=== PATIENT | male | born 1955 | race Caucasian/White ===

== ENCOUNTER 2020-06-28 17:40 | Inpatient (IN) | payer MEDICARE, MEDICAID ==
[~2020-06-28] VITALS: Ht 167.6 cm; Wt 88.0 kg
[2020-06-28 17:00] VITALS: BP 119/71
[2020-06-28 17:55] VITALS: BP 139/75
--- NOTE | 2020-06-28 17:55 | NUR ---
PT ARRIVED VIA WC A DIRECT ADMIT. A&O X2, RE-ORIENTATION TO CURRENT MONTH NEEDED, PT EASILY RE-ORIENTED. NIECE PROVIDED MED LIST, PT UNABLE TO RECALL MEDICAL HX OR MEDICATIONS. PER NIECE HE USED TO LIVE [place] USE TO CARE FOR HIM, AFTER SHE SHE BECAME HIS POA. PEDAL PULSE TO THE RT FOOT WEAKER COMPARED TO THE LT FOOT. DOPPLER USED, PULSES HEARD IN BILATERAL FEET. #20 IV GAUGE INITIATED TO RFA CURRENTLY SALINE LOCK. DIRECT ADMIT ORDERS SENT TO PHARMACY. CHRONIC BIG TOE WOUND TO RT BIG TOE. SEE CHART FOR PHOTO. DR KIRK CALLED FOR CONSULT, DR BOWEN CONSULT BOOKED, ORDER FOR WOUND CARE REC. ASSESSMENT COMPLETED. DISCUSSED POC. CALL LIGHT IN REACH. CONTINUE TO MONITOR.
--- NOTE | 2020-06-28 18:35 | NUR ---
PLACED CONSULTATION IN IPAD FOR DR. BOWEN CONSULT.
--- NOTE | 2020-06-28 18:39 | NUR ---
CALLED DR. MIRELES REGARDING CONSULTATION OF THIS PT. STATED HE WOULD SEE HIM IN THE MORNING TOMORROW.
[2020-06-28 18:55] LABS: HEMATOCRIT 39.7 % (39.0-50.0); HEMOGLOBIN 12.5 g/dl (14.0-18.0); IMMATURE GRANULOCYTES 0.4 % (0.0-5.0); MEAN CELL VOLUME 89.6 fL CALC (80.0-100.0); MEAN CORPUSCULAR HGB 28.2 pG CALC (26.0-32.0); MEAN CORPUSCULAR HGB CONC 31.5 g/dL CAL (32.0-36.0); NEUT# 6.71 thou/uL (1.82-7.42); RED BLOOD COUNT 4.43 mill/uL (4.70-6.10); RED CELL DISTRI WIDTH 13.7 % (11.5-15.5)
[2020-06-28 18:56] LABS: URINE BILIRUBIN - DIPSTICK NEGATIVE (NEGATIVE); URINE BLOOD DIPSTICK NEGATIVE (NEGATIVE); URINE CLARITY CLEAR; URINE COLOR YELLOW; URINE GLUCOSE - DIPSTICK >=1000 mg/dL (NEGATIVE); URINE KETONE NEGATIVE (NEGATIVE); URINE LEUK ESTERASE NEGATIVE (Negative); URINE NITRITE - DIPSTICK NEGATIVE (Negative); URINE PH 5.5 (4.5-8.0); URINE PROTEIN - DIPSTICK NEGATIVE (NEG-TRACE); URINE SPECIFIC GRAVITY 1.025; URINE UROBILINOGEN - DIPSTICK 0.2 E.U./dL (0.2)
[2020-06-28 19:31] LABS: ALBUMIN 3.9 g/dL (3.2-5.0); ALKALINE PHOSPHATASE 153 u/l (38-126); ANION GAP 12 (6-22 (CALC)); BILIRUBIN, TOTAL 1.2 mg/dL (0.0-1.4); BUN 21 mg/dL (8-23); BUN/CREATININE RATIO 32 (12-20 (CALC)); C-REACTIVE PROTEIN 4.1 mg/dL (0-0.9); CARBON DIOXIDE 28 mmol/l (22-30); CHLORIDE 99 mmol/l (95-108); CREATININE 0.7 mg/dL (0.7-1.3); GFR > 60 ML/MIN (>=60 (CALC)); GFR FOR AFR.AMER. > 60 ML/MIN (>=60 (CALC)); POTASSIUM 4.4 mmol/l (3.5-5.1); SGOT/AST 27 u/l (19-48); SODIUM 134 mmol/l (137-146); TOTAL PROTEIN 8.1 g/dL (6.3-8.2)
[2020-06-28] MEDS ORDERED: ISOSORB MONO30 MG PO (19:42)
[2020-06-28] MEDS ORDERED: LASIX20 MG PO (19:43)
--- NOTE | 2020-06-28 20:04 | NUR ---
RECIEVED REPORT FROM TAISHA ROBERTS. PT ASSESSMENT AND VITALS COMPLETE. PT RESTING IN IN SEMI FOLWERS POSITION WATCHING TV UPON ENTERING ROOM.RESPIRATIONS ARE EVEN AND UNLABORED WITH NO SIGNS OF DISTRESS NOTED. IV ROCEPHIN RUNNING WITH EASE PER ORDER, SITE APPEARS HEALTHY AND PATENT. ULCERATED RIGHT GREAT TOE HAS NO TOE NAIL. FAINT PEDAL PULSE IN RIGHT FOOT. LEFT FOOT PEDAL PULSE WITHIN NORMAL LIMITS. TELEMENTRY IN PLACE. NO SIGNS OF ANY PAIN OR DISCOMFORTS AT THIS TIME. ALL SAFETY PRECAUTIONS ARE IN PLACE WITH CALL LIGHT IN REACH. WILL CONTINUE TO MONITOR.
[2020-06-28] MEDS ORDERED: LISINOPRIL20 M1 PO (20:26)
[2020-06-28] MEDS ORDERED: LIPITOR40 M1 PO (20:27)
[2020-06-28] MEDS ORDERED: ASPIRIN 81 LOW81 MG (20:28)
[2020-06-28] MEDS ORDERED: LORATADINE10 M3 (20:29)
[2020-06-28] MEDS ORDERED: LEVEMIR FL100 UNIT/M SC (20:31)
[2020-06-28] MEDS ORDERED: HUMALOG100 UNIT/M SC (20:31)
--- NOTE | 2020-06-28 21:05 | NUR ---
RECEIVED PHONE CALL FROM NIECE VOICING CONCERNS REGARDING PT'S DAUGHTER WANTING TO DISRUPT PTS CARE. THEY ARE ASKING FOR CALL FROM CASE MANAGEMENT TO DISCUSS POC FOR PT.
--- NOTE | 2020-06-28 21:15 | NUR ---
RECIEVED REPORT FROM TAISHA ROBERTS. PT ASSESSMENT AND VITALS COMPLETE. PT RESTING IN IN SEMI FOLWERS POSITION WATCHING TV UPON ENTERING ROOM.RESPIRATIONS ARE EVEN AND UNLABORED WITH NO SIGNS OF DISTRESS NOTED. IV ROCEPHIN RUNNING WITH EASE PER ORDER, SITE APPEARS HEALTHY AND PATENT. ULCERATED RIGHT GREAT TOE HAS NO TOE NAIL. FAINT PEDAL PULSE IN RIGHT FOOT. LEFT FOOT WITHIN NORMAL LIMITS. TELEMENTRY IN PLACE. NO SIGNS OF ANY PAIN OR DISCOMFORTS AT THIS TIME. ALL SAFETY PRECAUTIONS ARE IN PLACE WITH CALL LIGHT IN REACH. WILL CONTINUE TO MONITOR.
[2020-06-29] VITALS: BP 137/75
--- NOTE | 2020-06-29 02:07 | NUR ---
PT SLEEPING IN BED WITH NO DISTRESSNOTED; CALL TURNER WITHIN REACH. WILL CONTINUE TO MONITOR.
[2020-06-29 04:00] VITALS: BP 127/74
--- NOTE | 2020-06-29 05:02 | NUR ---
PT SLEEPING QUIETLY. NO DISCOMFORT OBSERVED WILL CONTINUE TO MONITOR.
[2020-06-29 05:43] LABS: ALBUMIN 3.3 g/dL (3.2-5.0); ALKALINE PHOSPHATASE 141 u/l (38-126); ANION GAP 12 (6-22 (CALC)); BUN 16 mg/dL (8-23); BUN/CREATININE RATIO 24 (12-20 (CALC)); CARBON DIOXIDE 28 mmol/l (22-30); CHLORIDE 101 mmol/l (95-108); CREATININE 0.7 mg/dL (0.7-1.3); GFR > 60 ML/MIN (>=60 (CALC)); GFR FOR AFR.AMER. > 60 ML/MIN (>=60 (CALC)); POTASSIUM 4.5 mmol/l (3.5-5.1); SGOT/AST 28 u/l (19-48); SODIUM 137 mmol/l (137-146); TOTAL PROTEIN 6.9 g/dL (6.3-8.2)
[2020-06-29 05:46] LABS: BILIRUBIN, TOTAL 0.7 mg/dL (0.0-1.4)
[2020-06-29 07:49] VITALS: BP 135/78
--- NOTE | 2020-06-29 07:57 | NUR ---
SHIFT CHANGE REPORT, PT AWAKE ALERT AND ORIENTED AMBULATING IN ROOM, DENIES DISCOMFORT. DR KIRK HERE ROUNDING AT THIS TIME, GAVE VERBAL DRESSING ORDERS AND STATED HE WILL DISCUSS WITH DR MARIA, WILL CONTINUE TO MONITOR.
--- NOTE | 2020-06-29 08:10 | NUR ---
PT note Patient is screened for PT intervention and would benefit if medical agrees to PT consult
--- NOTE | 2020-06-29 08:30 | NUR ---
DR KIRK CONSULTED, GAVE DRESSING ORDERS.
[2020-06-29 10:30] VITALS: BP 132/82
--- NOTE | 2020-06-29 11:05 | NUR ---
CONSULT PLACED AT THIS TIME.
--- NOTE | 2020-06-29 14:26 | NUR ---
S: DIANA CAO is a 64 M who presents with non healing right foot wound (rule out osteomyelitis). He has a history of diabetes, hyperlipidemia, hypertension, seasonal allergies,congestive heart failure, and peripheral arterial disease. All medications in patient's chart were reviewed. O: VS: BP 132/82 mmHg, P 90 bpm, RR 18 breaths per minute,T 97 F W 88 kg, HT 167.6 cm, Scr= 0.7 mg/dL,CrCl= 113.8 ml/min A: No blood culture pending at this time. P: Patient is on ceftriaxone 2g IV q24h. Vancomycin ordered for pharmacy to dose. Loading dose of vancomycin 1750 mg IV x1 given 06/28@1999. Start Vancomycin 1250 mg IV Q12H. Vancomycin trough is drawn before the 4th dose on 06/30/20 at 2030 Vancomycin goal trough is between 15-20 mcg/ml. Pharmacy will follow and or advise on antibiotics use as needed.
[2020-06-29 15:05] VITALS: BP 124/78
[2020-06-29 19:00] VITALS: BP 118/64
--- NOTE | 2020-06-29 20:02 | NUR ---
RECIEVED REPORT FROM TAISHA BAUMANN. PT ASSESSMENT AND VITALS COMPLETE. PT RESTING IN IN SEMI FOLWERS POSITION WATCHING TV UPON ENTERING ROOM.RESPIRATIONS ARE EVEN AND UNLABORED WITH NO SIGNS OF DISTRESS NOTED.IV SITE APPEARS HEALTHY AND PATENT. ULCERATED RIGHT GREAT TOE HAS NO TOE NAIL. FAINT PEDAL PULSE IN RIGHT FOOT; SALINE LOCKED AT THIS TIME. LEFT FOOT PEDAL PULSE WITHIN NORMAL LIMITS. TELEMENTRY IN PLACE. NO SIGNS OF ANY PAIN OR DISCOMFORTS AT THIS TIME. ALL SAFETY PRECAUTIONS ARE IN PLACE WITH CALL LIGHT IN REACH. WILL CONTINUE TO MONITOR.
[2020-06-30] VITALS (7 sets, daily range): BP systolic 101–128; BP diastolic 48–79
--- NOTE | 2020-06-30 00:02 | NUR ---
PT SLEEPING QUIETLY. NO DISCOMFORT OBSERVED WILL CONTINUE TO MONITOR.
--- NOTE | 2020-06-30 04:57 | NUR ---
PT REMAINS BEFORE, RESTING QUIETLY WITH OUT ANY CO OF PAIN OR DISTRESS. CALL TURNER WITHIN REACH. WILL CONTINUE TO OBSERVE.
[2020-06-30 05:28] LABS: HEMATOCRIT 38.7 % (39.0-50.0); HEMOGLOBIN 11.9 g/dl (14.0-18.0); IMMATURE GRANULOCYTES 0.3 % (0.0-5.0); MEAN CELL VOLUME 90.8 fL CALC (80.0-100.0); MEAN CORPUSCULAR HGB 27.9 pG CALC (26.0-32.0); MEAN CORPUSCULAR HGB CONC 30.7 g/dL CAL (32.0-36.0); NEUT# 7.08 thou/uL (1.82-7.42); RED BLOOD COUNT 4.26 mill/uL (4.70-6.10); RED CELL DISTRI WIDTH 13.8 % (11.5-15.5)
[2020-06-30 05:33] LABS: ALBUMIN 3.1 g/dL (3.2-5.0); ALKALINE PHOSPHATASE 130 u/l (38-126); ANION GAP 11 (6-22 (CALC)); BILIRUBIN, TOTAL 0.6 mg/dL (0.0-1.4); BUN 15 mg/dL (8-23); BUN/CREATININE RATIO 25 (12-20 (CALC)); CARBON DIOXIDE 30 mmol/l (22-30); CHLORIDE 102 mmol/l (95-108); CREATININE 0.6 mg/dL (0.7-1.3); GFR > 60 ML/MIN (>=60 (CALC)); GFR FOR AFR.AMER. > 60 ML/MIN (>=60 (CALC)); POTASSIUM 4.4 mmol/l (3.5-5.1); SGOT/AST 26 u/l (19-48); SODIUM 139 mmol/l (137-146); TOTAL PROTEIN 6.5 g/dL (6.3-8.2)
--- NOTE | 2020-06-30 07:23 | NUR ---
SHIFT CHANGE REPORT, PT AWAKE ALERT AND ORIENTED AMBULATING IN ROOM, DENIES DISCOMFORT OF ANY KIND, TELE MONITOR IN PLACE, CALL TURNER IN REACH.
--- NOTE | 2020-06-30 10:10 | NUR ---
RADIO ENGINEERING TEACHER (ANNE) REPORTED 10 BEATS V-TACH @ 0934, ON ASSESSMENT PT RELAXED IN BED, DENIES CHEST PAIN/DISCOMFORT, VITAL SIGNS MEASURED = BP 129/77, HR 101, WATER TREATMENT PLANT OPERATOR NOTIFIED AND STATED WILL ORDER MG LEVEL.
--- NOTE | 2020-06-30 12:06 | NUR ---
SITTING ON SIDE OF BED HAVING MEAL, NO COMPLAINTS
--- NOTE | 2020-06-30 20:00 | NUR ---
PATIENT ALERT, VERBAL WITH INT CONFUSION, ABLE TO MAKE NEEDS KNOWN. ABLE TO TOLERATE MEDS WELL WHOLE. FSBS ORDERED WITH SSI PRN--NO S/S OF GLYCEMIC REACTION NOTED. CONT ON IV ABT THERAPY RELATED TO RIGHT GREAT TOE WOUND--DRSG C/D/I. PICC LINE PATENT TO KARINA--FLUSHES WELL--SITE WITHOUT ANY S/S OF INFECTION NOTED. VAN TROUGH DRAWN PRIOR TO TONIGHT'S DOSE--@ 12--VANC INFUSING WELL AT THIS TIME--NO S/E NOTED THUS FAR--AFEBRILE. TELEMETRY IN PLACE WITH SR @ 99 WITH PVCs. CONT OF BOWEL AND BLADDER--ABLE TO AMBULATE TO AND FROM INDEPENDENTLY--UP IN ROOM AD FERNANDO. DENIES ANY PAIN OR DISCOMFORT. PENDING POSSIBLE DISCHARGE HOME TOMORROW WITH HOME HEALTH TO CONTINUE IV ABT THERAPY. WILL CONT TO MONITOR FOR ANY FURTHER CHANGES.
[2020-07-01] VITALS (7 sets, daily range): BP systolic 107–119; BP diastolic 62–78
--- NOTE | 2020-07-01 | NUR ---
PATIENT RESTING SOUNDLY IN BED WITH EYES CLOSED AT THIS TIME. PIV SITE PATENT--FLUSHES WELL--SITE UNREMARKABLE. NO APPARENT DISTRESS NOTED. TELEMETRY IN PLACE WITH SR @ 95--PVCS WITH 1ST DEGRE AV BLOCK NOTED WELL. DRSG REMAINS C/D/I RIGHT RIGHT GREAT TOE. NO S/S OF GLYCEMIC REACTION NOTED. WILL CONT TO MONITOR FOR ANY FURTHER CHANGES.
[2020-07-01 03:42] LABS: HEMOGLOBIN 10.6 g/dl (14.0-18.0); MEAN CELL VOLUME 91.2 fL CALC (80.0-100.0); MEAN CORPUSCULAR HGB 28.4 pG CALC (26.0-32.0); MEAN CORPUSCULAR HGB CONC 31.2 g/dL CAL (32.0-36.0); RED BLOOD COUNT 3.73 mill/uL (4.70-6.10)
[2020-07-01 03:56] LABS: ANION GAP 9 (6-22 (CALC)); BUN 12 mg/dL (8-23); BUN/CREATININE RATIO 22 (12-20 (CALC)); CARBON DIOXIDE 28 mmol/l (22-30); CHLORIDE 107 mmol/l (95-108); CREATININE 0.5 mg/dL (0.7-1.3); GFR > 60 ML/MIN (>=60 (CALC)); GFR FOR AFR.AMER. > 60 ML/MIN (>=60 (CALC)); MAGNESIUM 1.7 mg/dL (1.6-2.3); POTASSIUM 3.9 mmol/l (3.5-5.1); SODIUM 140 mmol/l (137-146)
--- NOTE | 2020-07-01 04:00 | NUR ---
PATIENT RESTING SOUNDLY IN BED WITH EYES CLOSED AT THIS TIME. LABS DRAWN FROM PICC LINE THIS AM--PENDING AT THIS TIME. NO S/S OF GLYCEMIC REACTION NOTED. DENIES PAIN OR DISCOMFORT. TELEMETRY IN PLACE--SINUS RHYTHM @ 89. WILL CONT TO MONITOR FOR ANY FURTHER CHANGES.
--- NOTE | 2020-07-01 07:20 | NUR ---
ASSESSMENT IS COMPLETEDA; IV SITE IS FREE FROM REDNESS OR EDEMA. HR IS REG,PULSES ARE STRONG X4, ABD IS SOFT WITH ACTIVE BS. BREATH SOUNDS ARE CLEAR BILATERALLY, NO C/O SOB, DRESSING ON R FOOT IS CDI. CONTINUE TO OSBERVE AND MONITOR.
--- NOTE | 2020-07-01 09:38 | NUR ---
S: DIANA CAO is a 64 M who presents with right toe ulcer, chronic ulcer of right great toe, subacute osteomyelitis, right ankle and foot. He has a history of CAD, IDDM, CHF, seasonal allergies, hyperlipidemia, peripheral arterial disease, HTN. All medications in patient's chart were reviewed. O: VS: BP 118/78 mmHG, P 93 bpm, RR 17 breaths/min, T 97.5 W 88kg, HT 66in, Scr= 0.5mg/dL ,CrCl= 132.7 ml/min A: Blood culture is not ordered. P: Patient is on Vancomycin IV. trough=12 on 06/30/20 Vancomycin ordered for pharmacy to dose. Continue Vancomycin 1250 IV Q12H. Vancomycin trough is drawn before the 4th dose on 07/02/20 0830. Vancomycin goal trough is between 10-20 mcg/ml. Pharmacy will follow and or advise on antibiotics use as needed.
--- NOTE | 2020-07-01 12:15 | NUR ---
PT IS RELAXING ON THE SIDE OF THE BED, IV SITE IS FREE FROM REDNESS OR EDEMA.
--- NOTE | 2020-07-01 15:29 | NUR ---
REMOVED DRESSING ON R BIG TOE. THE NAIL IS OFF. HAS BETADINE , WITH DRY SKIN. REPLACED WITH BETADINE 2X2 AND CLEANED WITH MORE BETADINE. COVERED WITH DRY DRESSING SECURED WITH SMALL KATELYN. AND TAPE. USING CLEAN TECHNIQUE PT TOLERATED WELL.
--- NOTE | 2020-07-01 16:00 | NUR ---
PT IS RELAXING AND AMBULATING IN THE HERNA[place]Z WITH NO DISTRESS NOTED. IV SITE IS FREE FROM REDNESS OR EDEMA.
--- NOTE | 2020-07-01 20:00 | NUR ---
PATIENT ALERT, VERBAL WITH INT CONFUSION, ABLE TO MAKE NEEDS KNOWN. ABLE TO TOLERATE MEDS WELL WHOLE. CONT ON IV ABT THERAPY RELATED TO RIGHT HALLUX WOUND WITH NO SIDE EFFECTS NOTED--AFEBRILE. DRSG PATENT TO RIGHT HALLUX WOUND--C/D/I. PATIENT RECEIVING VANC--TROUGH DUE IN THE AM @ 0830. PICC LINE PATENT TO KARINA--FLUSHES WELL--SITE WITHOUT ANY S/S OF INFECTION NOTED--DRSG C/D/I. CONT OF BOWEL AND BLADDER--ABLE TO AMBULATE TO AND FROM IN ROOM WITH MINIMAL ASSIST. DENIES PAIN OR DISCOMFORT. PT/OT IN PLACE--COMPLAINT WITH PARTICIPATING WITH THERAPY. FSBS ORDERED WITH SSI PRN--NO S/S OF GLYCEMIC REACTION NOTED. TELEMETRY IN PLACE WITH SINUS RHYTHM WITH PVCs @ 97. WILL CONT TO MONITOR FOR ANY FURTHER CHANGES.
[2020-07-02] VITALS (7 sets, daily range): BP systolic 95–144; BP diastolic 60–82
--- NOTE | 2020-07-02 | NUR ---
PATIENT RESTING SOUNDLY IN BED WITH EYES CLOSED AT THIS TIME. RECEIVED IV VANCOMYCIN ORDERED--TOLERATED INFUSION WELL. PICC LINE PATENT TO RUE--FLUSHES WELL--SITE WITHOUT ANY S/S OF INFECTION NOTED.TELEMETRY IN PLACE--SINUS RHYTHM W/PVCs @ 88. NO APPARENT DISTRESS NOTED. WILL CONT TO MONITOR FOR ANY FURTHER CHANGES.
--- NOTE | 2020-07-02 04:00 | NUR ---
PATIENT AWAKE AND SEATED ON SIDE OF BED WATCHING TV AT THIS TIME--NO APPARENT DISTRESS NOTED. LABS FOR THIS AM DRAWN FROM PICC LINE AND SENT TO LAB FOR TESTING. PICC LINE PATENT TO KARINA--FLUSHES WELL--SITE WITHOUT ANY S/S OF INFECTION NOTED. TELEMETRY IN PLACE WITH SR @ 97. WILL CONT TO MONITOR FOR ANY FURTHER CHANGES.
[2020-07-02 05:04] LABS: HEMATOCRIT 36.9 % (39.0-50.0); HEMOGLOBIN 11.6 g/dl (14.0-18.0); MEAN CELL VOLUME 92.7 fL CALC (80.0-100.0); MEAN CORPUSCULAR HGB 29.1 pG CALC (26.0-32.0); MEAN CORPUSCULAR HGB CONC 31.4 g/dL CAL (32.0-36.0); RED BLOOD COUNT 3.98 mill/uL (4.70-6.10)
[2020-07-02 05:34] LABS: ANION GAP 8 (6-22 (CALC)); BUN 14 mg/dL (8-23); BUN/CREATININE RATIO 21 (12-20 (CALC)); CARBON DIOXIDE 28 mmol/l (22-30); CHLORIDE 108 mmol/l (95-108); CREATININE 0.7 mg/dL (0.7-1.3); GFR > 60 ML/MIN (>=60 (CALC)); GFR FOR AFR.AMER. > 60 ML/MIN (>=60 (CALC)); POTASSIUM 4.3 mmol/l (3.5-5.1); SODIUM 140 mmol/l (137-146)
--- NOTE | 2020-07-02 07:50 | NUR ---
ASSESSMENT IS COMPLETED: IV SITE IS FREE FROM REDNESS OR EDEMA HR IS REG,PULSES ARE STRONG X4, ABD IS SOFT WITH ACTIVE BS. BREATH SOUNDS ARE CLEAR BILATERALLY. TELE MONITOR IN PLACE. R TOE MINER DRESSING IS CDI CONTINUE TO OBSERVE AND MONITOR.
--- NOTE | 2020-07-02 12:00 | NUR ---
PT HAS BEEN AMBULATING IN THE HER[place]Z WITH NO DISTRESS NOTED. IV SITE IS FREE FROM REDNESS OR EDEMA.
--- NOTE | 2020-07-02 12:55 | NUR ---
S: DIANA CAO is a 64 M who presents with ulcer on right toe, chronic ulcer of right toe, and subacute osteomyelitis of right ankle and foot. He has a history of CAD, IDDM, CHF, seasonal allergies, hyperlipidemia, peripheral arterial disease, HTN. All medications in patient's chart were reviewed. O: Trough = 12 mmcg/ml VS: BP 110/71 mmHg, P 93 bpm, RR 19 breats/min, T 97.3 F W 88Kg, HT 66in, Scr= 0.7 mg/dL, CrCl= 113.76 ml/min P: Patient is on Vancomycin IV. Vancomycin trough is 12 ug/mL Vancomycin ordered for pharmacy to dose. Continue Vancomycin 1250 mg IV Q12H. Vancomycin trough is to be drawn on 07/04/20 @ 0830. Vancomycin goal trough is between 10-20 mcg/ml. Pharmacy will follow and or advise on antibiotics use as needed.
--- NOTE | 2020-07-02 14:18 | NUR ---
GAIT TRAINING USING QUADCANE X 150 FEET, SUPERVISION WITH MINIMAL VERBAL CUES ON PROPER USE, GAIT PATTERN, AND SEQUENCING USING THE ASSISTIVE DEVICE. AMPAC = 15
--- NOTE | 2020-07-02 16:00 | NUR ---
PT HAS BEEN AMBULATING IN THE HER[place] WITH NO DISTRESS NOTED. PT AND OT CAME AND SEEN THE PT FOR EVALUATION.
--- NOTE | 2020-07-03 01:10 | NUR ---
Patient up beginning of shift, walking throughout hallway. Resp. even and unlabored. No SOB noted. On IV ABT for osteomyelitis, no adverse reaction noted. Afebrile. IV site in MARGUERITE intact, flushing well. Telemetry reading sinus rhythm. Will continue to monitor. Fluids encouraged. Safety measures in place with call light in reach.
[2020-07-03 04:25] VITALS: BP 125/75
[2020-07-03 07:30] VITALS: BP 146/83
--- NOTE | 2020-07-03 07:30 | NUR ---
ASSESSMENT IS COMPLETED: IV SITE IS FREE FROM REDNESS OR EDEMA. HR IS REG,PULSES ARE STRONG X4, ABD IS SOFT WITH ACTIVE BS. BREATH SOUNDS ARE CLEAR,BILATERALLY, DRESSING ON R FOOT IS CDI. WILL ENCOURAGE PT TO SHOWER AFTER ABT IS COMPLETED.TELE MONITOR IN PLACE. CONTINEU TO OSBERVE AND MONITOR.
--- NOTE | 2020-07-03 10:00 | NUR ---
DR MONTEZ IN TO VISIT WITH PT.
[2020-07-03 10:30] VITALS: BP 113/79
--- NOTE | 2020-07-03 11:45 | NUR ---
1145-PT LYING IN BED. NO S/S OF DISTRESS. BED LOW AND LOCKED. CALL LIGHT AND PHONE WITHIN REACH. PT STABLE. WILL CONTINUE TO MONITOR.
--- NOTE | 2020-07-03 12:00 | NUR ---
PT IS AMBULATING IN THE HERNANDEZ AND ROOM. CONTINUE TO OBSERVE AND MONITOR.,
--- NOTE | 2020-07-03 13:59 | NUR ---
PT TOOK A SHOWER. REMOVED DRESSING ON R BIG TOE. REMAINS PINK AND DRY. REPLACED WITH 2X2 AND BETADINE., WITH DRY GAUZE AND WRAPPED WITH KATELYN. USING CLEAN TECHNIQUE.
--- NOTE | 2020-07-03 14:15 | NUR ---
FLUSHED THE PICC LINE. PURPLE LINE FLUSHED WITHOUT DIFFICULTY. RED LINE A LITTLE DIFFICULT. AND PUT HEPARIN IN THE LINE TO GET IT TO FLUSH PROPERLY.
[2020-07-03 15:00] VITALS: BP 124/80
--- NOTE | 2020-07-03 16:00 | NUR ---
PT IS RELAXING ON THE SIDE OF THE BED, NO DISTRESS NTOED. IV SITE IS FREE FROM REDNESS OR EDEMA. CONTINEU TO OSBERVE AND MONITOR.
--- NOTE | 2020-07-03 18:50 | NUR ---
1850-PT ALERT AND ORIENTED. NO S/S OF DISTRESS. DENIES PAIN. PT IS STABLE. BED LOW AND LOCKED. CALL LIGHT AND PHONE WITHIN REACH. WILL CONTINUE TO MONITOR.
[2020-07-03 19:00] VITALS: BP 131/79
[2020-07-04] VITALS: BP 125/73
--- NOTE | 2020-07-04 03:45 | NUR ---
0345-PT LYING IN BED ASLEEP. NO S/S OF DISTRESS. BED LOW AND LOCKED. CALL LIGHT AND PHONE WITHIN REACH. PT STABLE. WILL CONTINUE TO MONITOR.
[2020-07-04 04:00] VITALS: BP 114/74
[2020-07-04 07:35] VITALS: BP 116/65
--- NOTE | 2020-07-04 07:35 | NUR ---
ASSESSMENT IS COMPLTED: IV SITE IS FREE FROM REDNESS OR EDEMA. HR IS REG,PULSES ARE STRONG X4, ABD IS SOFT WITH ACTIVE BS, BREATH SOUNDS ARE CLEAR,BILATERALLY, TELE MONITOR IN PLACE. CONTINUE TO OSBERVE AND MONITOR.
--- NOTE | 2020-07-04 08:31 | NUR ---
ATTEMPT MADE TO COLLECT VANCOTROUGH SAMPLE FROM PICC LINE, UNSUCCESSFULL. FLUSHED LINE WITH HEPARIN. WILL REATTEMPT TO PULL BACK BLOOD. PURPLE LUMEN FLUSHES WITH NO DRAW BACK, RED LUMEN UNABLE TO FLUSH OR DRAW BACK. VANCOTROUGH COLLECTED.
[2020-07-04 10:30] VITALS: BP 118/72
--- NOTE | 2020-07-04 12:00 | NUR ---
CONTINUE TO ATTEMPT TO FLUSH THE RED SIDE OF THE PICC LINE. UNSUCCESSFUL. INQUIRED ABOUT MEDICATION TO OPENUP . WAITING ON DR NELSON.
--- NOTE | 2020-07-04 14:26 | NUR ---
PT IS RECEIVING VANCOMYCIN 1250MG IV Q12H FOR NON HEALING R FOOT WOUND. PER DR BOWEN, GOAL TROUGH IS 10-20 MCG/ML. TROUGH THIS AM @ 0830 WAS 15 MCG/ML, SO CONTINUE CURRENT DOSE. TROUGH HAS BEEN WITHIN GOAL RANGE X3. WILL CHECK VANCO LEVEL ON 07/06 @ 0830. NO LABS HAVE BEEN ORDERED SINCE 07/02, WILL ASSESS KIDNEY FUNCTION WITH NEXT LAB DRAW. PHARMACY WILL CTONINUE TO FOLLOW AND ADVISE NEEDED.
--- NOTE | 2020-07-04 14:30 | NUR ---
CATHFLO ADMINISTERED BY HILDA SUMNER.
[2020-07-04 15:00] VITALS: BP 124/72
--- NOTE | 2020-07-04 15:00 | NUR ---
1430- cath rich administdred in red lumen per md orders and protocol. 1500- withdrew 5cc of blood aspirate from red lumen. both lumens flushed with ease and blood aspirate from both lumens noted.
--- NOTE | 2020-07-04 16:00 | NUR ---
REFLUSHED THE PICC LINE SITES VERY SUCCESSFUL. NO DISTRESS NOTED. DRESSING ON R BIG TOE WAS TAKEN OFF FOR A SHOWER. PICTURE COMPLTED: REPLACED WITH BETADINE 2X2 AND COVERED WITH 2X2, SECURED WITH KATELYN WRAP. AND TAPE. PT TOLERATED WELL. TOP OF BIG TOE ON R FOOT IS HARD ( WITH BLACK SURFACE) AND SOFT (WITH WHITE UNDER NEATH THE BLACK). CONTINUE TO OSBERVE AND MONITOR. .
[2020-07-04 19:00] VITALS: BP 112/64
--- NOTE | 2020-07-04 20:56 | NUR ---
pt medicated as orders provide and snack provided. No s/o distress, denies pain at this time. Iv antibiotic therapy administered at this time. Call light w/in reach and pt encouraged to call as needs arise.
--- NOTE | 2020-07-04 23:00 | NUR ---
PT IV ANTIBIOTIC THERAPY COMPLETE AT THIS TIME. PICC LINE FLUSHED X2 LUMENS AND HEP LOCKED. PT DENIES ANY OTHER NEEDS. TV AND LIGHTS ARE ON WITH CALL LIGHT W/IN REACH.
[2020-07-05] VITALS: BP 110/69
--- NOTE | 2020-07-05 03:16 | NUR ---
PT SITTING UPRIGHT IN BED AWAKE LOOKING AT TV. WHEN ASKED, DENIED ANY NEEDS. CALL LIGHT AT SIDE.
[2020-07-05 04:00] VITALS: BP 128/83
--- NOTE | 2020-07-05 04:18 | NUR ---
BLOOD DRAWN FOR LAB FROM PICC LINE. FLUSHES PATENT AND HEP LOCKED AT THIS TIME X2 LUMENS.
[2020-07-05 04:32] LABS: HEMATOCRIT 37.6 % (39.0-50.0); HEMOGLOBIN 11.7 g/dl (14.0-18.0); IMMATURE GRANULOCYTES 0.3 % (0.0-5.0); MEAN CELL VOLUME 92.8 fL CALC (80.0-100.0); MEAN CORPUSCULAR HGB 28.9 pG CALC (26.0-32.0); MEAN CORPUSCULAR HGB CONC 31.1 g/dL CAL (32.0-36.0); NEUT# 5.73 thou/uL (1.82-7.42); RED BLOOD COUNT 4.05 mill/uL (4.70-6.10); RED CELL DISTRI WIDTH 14.6 % (11.5-15.5)
[2020-07-05 04:49] LABS: ALBUMIN 3.4 g/dL (3.2-5.0); ALKALINE PHOSPHATASE 158 u/l (38-126); ANION GAP 11 (6-22 (CALC)); BILIRUBIN, TOTAL 0.6 mg/dL (0.0-1.4); BUN 15 mg/dL (8-23); BUN/CREATININE RATIO 24 (12-20 (CALC)); CARBON DIOXIDE 27 mmol/l (22-30); CHLORIDE 106 mmol/l (95-108); CREATININE 0.6 mg/dL (0.7-1.3); GFR > 60 ML/MIN (>=60 (CALC)); GFR FOR AFR.AMER. > 60 ML/MIN (>=60 (CALC)); POTASSIUM 4.4 mmol/l (3.5-5.1); SGOT/AST 28 u/l (19-48); SODIUM 140 mmol/l (137-146)
[2020-07-05 07:38] VITALS: BP 137/73
--- NOTE | 2020-07-05 07:54 | NUR ---
REPORT RECEIVED FROM TAISHA COBIAN. PT SITTING UP ON EDGE OF BED; ALERT AND ORIENTED. DENIES PAIN. RESPIRATIONS EVEN AND UNLABORED ON ROOM AIR. LUNGS DIMINISHED; 1+ ANKLE EDEMA. PT LISTENING TO MUSIC AND PLEASANT. DRESSING TO MARGUERITE PICC LINE IS CDI. PLAN OF CARE REVIEWED. PT ENCOURAGED TO VERBALIZE CONCERNS. STATES UNDERSTNANDING. SAFETY MEASURES IN PLACE. CALL LIGHT WITHIN REACH.
--- NOTE | 2020-07-05 10:12 | NUR ---
PT AMBULATING INDEPENDENTLY IN HALLWAYS; PLEASANT AND TALKATIVE. VANCO INFUSING AT THIS TIME INTO MARGUERITE PICC LINE; DRESSING CDI.
--- NOTE | 2020-07-05 10:55 | NUR ---
DRESSING TO RIGHT GREAT TOE REPLACED; DRESSED WITH BETADINE AND DRY GAUZE. DRESSING TO MARGUERITE PICC LINE ALSO CHANGED AT THIS TIME.
[2020-07-05 11:20] VITALS: BP 115/66
--- NOTE | 2020-07-05 11:45 | NUR ---
PT.Note Pt. was seated at bed side as entered room, pt. agreed to ambulate hallway. Pt. ambulated down [address] ways(200ft) w/ quad cane (CGA), VC for proper heel strike, increased hip flexion, and no increased upper extremity weight bearing through cane. [facility] 6= 15
--- NOTE | 2020-07-05 15:47 | NUR ---
NO CHANGES IN CONDITION; PT REMAINS ALERT AND ORIENTED. DENIES PAIN. CONTINUES TO AMBULATE FREQUENTLY ON HALLWAYS WITH QUAD CANE; SEEN TODAY BY PHYSICAL THERAPY. NO REQUESTS OR CONCERNS AT THIS TIME. MAKES NEEDS KNOWN.
[2020-07-05 16:00] VITALS: BP 132/80
--- NOTE | 2020-07-05 17:35 | NUR ---
PT SITTING UP ON COUCH IN ROOM WITH NO CONCERNS. REPORT GIVEN TO TAISHA ARIZMENDI.
[2020-07-05 18:46] LABS: ANION GAP 12 (6-22 (CALC)); BUN 17 mg/dL (8-23); BUN/CREATININE RATIO 25 (12-20 (CALC)); CARBON DIOXIDE 25 mmol/l (22-30); CHLORIDE 106 mmol/l (95-108); CREATININE 0.7 mg/dL (0.7-1.3); GFR > 60 ML/MIN (>=60 (CALC)); GFR FOR AFR.AMER. > 60 ML/MIN (>=60 (CALC)); POTASSIUM 4.4 mmol/l (3.5-5.1); SODIUM 138 mmol/l (137-146)
[2020-07-05 19:02] VITALS: BP 134/78
--- NOTE | 2020-07-05 19:45 | NUR ---
Upon entering room resident awake and sitting up at bedside. Alert and oriented. Able to verbalize needs. States 0/10 pain at time of writing. Physical assessment completed with no abnormal findings at the time. BUCKE PICC appears healthy, tolearted flush well and patent. BS obtained and WNL to receive no sliding scale insulin. Pt requested saurabh crackers and yogurt for snack. EMAR rendered as ordered. Safety measures in place, with call mcginnis placed within easy reach at bedside. Will continue to monitor for any new changes in condition.
[2020-07-06 00:07] VITALS: BP 111/69
--- NOTE | 2020-07-06 00:53 | NUR ---
Pt resting in bed awake at time of writing. Pt states 1/10 pain at this time. Will continue to monitor for any new changes in codnition.
--- NOTE | 2020-07-06 04:38 | NUR ---
Resident awake laying in bed, states no pain at time of writing. Will continue to monitor for any new changes in condition.
[2020-07-06 04:50] VITALS: BP 108/68
[2020-07-06 07:43] VITALS: BP 150/69
--- NOTE | 2020-07-06 07:43 | NUR ---
RECIEVED REPORT FROM JOIE CAO. PT SITTING ON SIDE OF BED UPON ENTERING ROOM. INTRODUCED SELF TO PT AND DISCUSSED POC. PT IS A/O X3. ASESSMENT AND VITALS COMPLETED AT THIS TIME. BP 150/69, HR 95, O2 97% ON ROOM AIR. RESPIRATIONS ARE EVEN AND UNLABORED WITH NO SIGNS OF DISTRESS NOTED. LUNG SOUNDS ARE DIMINISHED. HEART RHYTHM IS NORMAL WITH TELE IN PLACE. BOWEL SOUNDS ARE ACTIVE IN ALL QUADRANTS, LAST REPORTED BM 06/14/2020. RADIAL PULSES ARE STRONG WITH NORMAL CAPILLARY REFILL. PEDAL PUSLES ARE WEAK. DRESSING TO RIGHT GREAT TOE CDI. DOUBLE LUMEN PICC IN MARGUERITE, SITE FLUSHED WITH GOOD BLOOD RETURN. PT DENIES ANY PAIN OR DISCOMDORTS. ALL SAFETY PREACUTIONS ARE IN PLACE WITH CALL LIGHT IN REACH. WILL CONTINUE TO MONITOR.
[2020-07-06 10:30] VITALS: BP 101/59
--- NOTE | 2020-07-06 10:38 | NUR ---
S: DIANA CAO is a 64 M who presents with right toe ulcer, chronic ulcer of great right toe, subacute osteomyelitis of right ankle and foot. He has a history of CAD, IDDM, CHF, seasonal allergies, hyperlipidemia, peripheral arterial disease, HTN All medications in patient's chart were reviewed. O: VS: BP 150/69 mmHg, P 95 bmp, RR 19 breaths/min ,T 97.3 F W 88 kg, HT 66 in, Scr= 0.7 mg/dL ,CrCl= 113.6 ml/min A: Blood culture not ordered for the patient. P: Patient is on Vancomycin IV. Vancomycin ordered for pharmacy to dose. Trough levels: 17 ug/mL Start Vancomycin 1000mg IV Q12H. Vancomycin trough is drawn before the 4th dose on 07/08/20 at 0830. Vancomycin goal trough is between 10-20 mcg/ml. Pharmacy will follow and or advise on antibiotics use as needed.
[2020-07-06] MEDS ORDERED: ROCEPHIN1 G1 IJ (11:38)
[2020-07-06] MEDS ORDERED: VANCOMYCIN HYDRO1 GM IV (11:38)
--- NOTE | 2020-07-06 12:29 | NUR ---
PT SITTING AT END OF HALLWAY LOOKING OUT WINDOW. PT IS A/O X3 AND AMBULATORY. RESPIRATIONS ARE EVEN AND UNLABORED WITH NO SIGNS OF DISTRESS NOTED.DISCHARGE ORDERS IN. CONTINUES TO WORK WITH PLACEMENT. PT DENIES OF ANY PAIN OR DISCOMFORTS AT THIS TIME. ENCOURAGED PT TO CALL FOR ASSISTANCE IF NEEDED. ALL SAFETY PRECAUTIONS ARE IN PLACE. WILL CONTINUE TO MONITOR.
[2020-07-06 15:00] VITALS: BP 112/58
--- NOTE | 2020-07-06 15:09 | NUR ---
pt performed LAQ 2x10, standing hip flexion 1x10, standing hip abduction 1x10, standing hip ext 1x10, standing heel raises (pt had difficulty perfoming heel raises) 2x10, mini squats 1x10. Gait training 150ft with quad cane. ampac= 15
--- NOTE | 2020-07-06 15:18 | NUR ---
MARGUERITE PICC LINE FLUSHED WITH SALINE AND HEPARIN. DRESSING TO RIGHT GREAT TOE CHANGED AT THIS TIME. WOUND CLEANED WITH IODINE AND WRAPPED WITH GUAZE WRAP. PT TOLERATED WELL. DRESSING REMAINS CDI AT THIS TIME. ALL SFAETY PRECAUTIONSA RE IN PLACE WITH CALL LIGHT IN REACH. WILL COTINUE TO MONITOR
--- NOTE | 2020-07-06 16:41 | NUR ---
BF OBTAINED AT THIS TIME. PT TOLERATED WELL. PT DENIES OF ANY PAIN OR DISCOMFORTS AT THIS TIME. ALL SFAETY PRECAUTIONS ARE IN PLACE WITH CALL LIGHT IN REACH. WILL CONTINUE TO MONITOR
--- NOTE | 2020-07-06 18:20 | NUR ---
PT EDUCATED ON DISCHARGE INSTRUCTIONS. PT VERBAILZED UNDERSTANDING.PT REQUESTED FOR DISCHARGE INSTRUCTIONS TO BE EXPLAIN TO DAUGHTER IN LAW. DAUGHTER IN LAW CONTACTED. PICC LINE REMAINS IN PLACE. TELE MONITORING REMOVED. ER NOTIFIED. ALL SAFETY PRECAUTIONS REMAIN IN PLACE. WILL CONTINUE TO MONITOR.
--- NOTE | 2020-07-06 18:45 | NUR ---
Discharge instructions given. Patient verbalizes understanding of same. [facility] stable [facility]. All belongings sent with pt. PT DISCHARGE TO [facility] BY MEDICAL TRANSPORT VIA WHEELCHAIR IN STABLE CONDITION. ALL DISCHARGE PAPERWORK AND BELONGINGS LEFT WITH PT.
--- NOTE | 2020-07-06 19:15 | NUR ---
REPORT CALLED TO BRANDI FROM TAISHA PAZ
== END 2020-07-06 18:45 | DRG 300 ==
LOC: MS2 17:40
PROVIDERS: Nurse Practitioner; Nurse Practitioner Family; ADMIT Internal Medicine; ATTEND Internal Medicine
PROC: 02HV33Z Insertion of Infusion Device into Superior Vena Cava, Percutaneous Approach (ICD-10-PCS; principal; 2020-06-29)
PROC: B518ZZA Fluoroscopy of Superior Vena Cava, Guidance (ICD-10-PCS; 2020-06-29)
DX: E11.52 Type 2 diabetes mellitus with diabetic peripheral angiopathy with gangrene (principal); L97.518 Non-pressure chronic ulcer of other part of right foot with other specified severity; I70.261 Atherosclerosis of native arteries of extremities with gangrene, right leg; M86.271 Subacute osteomyelitis, right ankle and foot; E11.69 Type 2 diabetes mellitus with other specified complication; E11.621 Type 2 diabetes mellitus with foot ulcer; L03.031 Cellulitis of right toe; I11.0 Hypertensive heart disease with heart failure; I50.9 Heart failure, unspecified; I25.10 Atherosclerotic heart disease of native coronary artery without angina pectoris; F17.220 Nicotine dependence, chewing tobacco, uncomplicated; F81.9 Developmental disorder of scholastic skills, unspecified; Z91.19 Patient's noncompliance with other medical treatment and regimen; Z95.0 Presence of cardiac pacemaker; Z95.5 Presence of coronary angioplasty implant and graft; Z79.4 Long term (current) use of insulin; Z20.828 Contact with and (suspected) exposure to other viral communicable diseases
CPT/HCPCS: J1650; J2997; J3370; Q3014